=== PATIENT | male | born 1950 | race Caucasian/White ===

== ENCOUNTER → 2018-03-19 | Outpatient (CLI) | payer MEDICARE, OTHER ==
--- NOTE | 2018-03-19 17:54 | REP ---
Prostate sonography: History: Prostate nodule. Abnormal digital rectal exam. Sonographic findings: Trans rectal prostate sonography demonstrates unremarkable seminal vesicles. Prostate gland is heterogeneously enlarged with calcifications and cystic changes noted. Glandular dimensions are measured at 5.6 x 4.3 x 6.2 cm with a calculated glandular volume of 78.0 ml. There are too right-sided and nodules visible measuring 0.8 and 0.6 cm in greatest diameter. Transrectal sonographic guidance provided to Dr. Guillermo who performed trans rectal ultrasound guided needle biopsy procedure . Electronically Signed by Gilbert Gama MD 03/19/2018 05:46 P
== END ==
LOC: M SMT PRO 10:46
PROVIDERS: ATTEND Urology
DX: R68.89 Other general symptoms and signs (principal); D29.1 Benign neoplasm of prostate
CPT/HCPCS: 55700; 76872; 76942; G0416

== ENCOUNTER → 2023-06-04 | Outpatient (CLI) | payer MEDICARE, BC ==
[~2023-06-04] MED LIST: ISOVUE-300 61% 100ML VIAL As Ordered ONE; LIDOCAINE 1% MDV 20ML VIAL As Ordered ONE; methylPREDNISolone SUSP 40MG/ML 1ML VIAL (DEPO MEDROL) As Ordered ONE
== END ==
LOC: M RAD 12:52
PROVIDERS: ATTEND Physician Assistant
DX: M16.11 Unilateral primary osteoarthritis, right hip (principal)
CPT/HCPCS: 20610; 77002; J1010; Q9967

== ENCOUNTER → 2023-08-31 | Outpatient (CLI) | payer MEDICARE, BC | LOC: M RAD 14:44 | PROVIDERS: ATTEND Physician Assistant | DX: M16.11 Unilateral primary osteoarthritis, right hip (principal) | CPT/HCPCS: 20610; 77002; J1010; Q9967 ==

== ENCOUNTER → 2023-12-04 | Outpatient (CLI) | payer MEDICARE, BC | LOC: M LAB 15:01 | PROVIDERS: ATTEND Urology | DX: Z12.5 Encounter for screening for malignant neoplasm of prostate (principal) | CPT/HCPCS: 36415; G0103 ==

== ENCOUNTER → 2023-12-05 | Outpatient (CLI) | payer MEDICARE, BC | LOC: M RAD 12:18 | PROVIDERS: ATTEND Physician Assistant | DX: M16.11 Unilateral primary osteoarthritis, right hip (principal) | CPT/HCPCS: 20610; 77002; J1010; Q9967 ==

== ENCOUNTER → 2024-02-25 | Outpatient (CLI) | payer MEDICARE, BC | LOC: M RAD 14:47 | PROVIDERS: ATTEND Physician Assistant | DX: M16.11 Unilateral primary osteoarthritis, right hip (principal) | CPT/HCPCS: 20610; 77002; J1010; Q9967 ==

== ENCOUNTER → 2024-06-10 | Outpatient (CLI) | payer MEDICARE, BC | LOC: M RAD 14:04 | PROVIDERS: ATTEND Physician Assistant | DX: M16.11 Unilateral primary osteoarthritis, right hip (principal) | CPT/HCPCS: 20610; 77002; J1010; Q9967 ==

== ENCOUNTER → 2024-09-22 | Outpatient (CLI) | payer MEDICARE, BC ==
[~2024-09-22] MED LIST changes: +ISOVUE-300 61% 100 ML VIAL As Ordered ONE; -ISOVUE-300 61% 100ML VIAL As Ordered ONE; +LIDOCAINE 1% MDV 20 ML VIAL As Ordered ONE; -LIDOCAINE 1% MDV 20ML VIAL As Ordered ONE; +methylPREDNISolone SUSP 40 MG/ML 1 ML VIAL As Ordered ONE; -methylPREDNISolone SUSP 40MG/ML 1ML VIAL (DEPO MEDROL) As Ordered ONE
== END ==
LOC: M RAD 14:43
PROVIDERS: ATTEND Physician Assistant
DX: M16.11 Unilateral primary osteoarthritis, right hip (principal)
CPT/HCPCS: 20610; 77002; J1010; Q9967

== ENCOUNTER → 2025-01-01 | Outpatient (CLI) | payer MEDICARE, BC | LOC: M RAD 14:41 | PROVIDERS: ATTEND Physician Assistant | DX: M16.11 Unilateral primary osteoarthritis, right hip (principal) | CPT/HCPCS: 20610; 77002; J1010; Q9967 ==

== ENCOUNTER → 2025-01-28 | Outpatient (POV) | payer MEDICARE, BC | LOC: M IRPOV 15:00 | PROVIDERS: ATTEND Registered Nurse School | DX: M25.551 Pain in right hip (principal); G89.29 Other chronic pain; Z79.899 Other long term (current) drug therapy; Z87.891 Personal history of nicotine dependence; Z88.5 Allergy status to narcotic agent ==